=== PATIENT | male | born 2000 | race Asian ===

== ENCOUNTER 2024-09-27 17:05 | Emergency (ER) | payer SELFPAY ==
[2024-09-27] VITALS (8 sets, daily range): BP systolic 108–125; BP diastolic 59–78; PULSE 61–88; RESP 13–18; TEMP 36.6–39.7; O2SAT 96–99; BMI 25.1
--- NOTE | ~2024-09-27 | US_ITS ---
CLINICAL HISTORY: GB, CBD, liver --- Additional Notes or Special Instructions: fever, pain, N,V US abdomen limited Comparison: None Findings: The visualized pancreas is normal. The aorta and inferior vena cava are normal caliber. The liver is normal in size and echotexture. There is no intrahepatic bile duct dilatation. The common duct is 3 mm in diameter. The gallbladder is normal. There is no sonographic Miramontes sign. The main portal vein is antegrade. The right kidney is 10.1 cm in length. No ascites. IMPRESSION: Unremarkable limited abdominal ultrasound. This document has been electronically signed by: Annia Walker MD on 09/27/2024 20:58:52
--- NOTE | ~2024-09-27 | XR_ITS ---
CLINICAL HISTORY: fever, feeling unwell 2 view chest x-ray Comparison: None Findings: No consolidation or effusion. Heart size is normal. No acute fracture. IMPRESSION: 1. No acute findings. This document has been electronically signed by: Annia Walker MD on 09/27/2024 19:05:05
--- NOTE | 2024-09-27 17:16 | ED.GENADULT ---
HPI - General Adult General Chief complaint: Fever Stated complaint: fever like symptoms Time Seen by Provider: 09/27/24 18:13 Source: patient Limitations: no limitations History of Present Illness ED Provider: Brianda Givens PA-C HPI narrative: 23-year-old male who is otherwise healthy presents with refractory fevers x4 days. Associated generalized malaise, myalgias, Pharyngitis,dry cough and nausea at times. patient was seen at urgent Care, was placed on penicillin, the patient is not sure why. T-max 104?. Denies abdominal pain, active vomiting or diarrhea. Denies dysuria. No rash. Related Data Allergies Allergy/AdvReac Type Severity Reaction Status Date / Time No Known Allergies Allergy Verified 09/27/24 17:18 Review of Systems Review of Systems: Yes all other systems are reviewed and are negative Constitutional: Constitutional: Reports fatigue, Reports fever(s) and Reports malaise ENT: Reports sore throat Cardiovascular: Cardiovascular: Denies chest pain and Denies dyspnea Respiratory: Respiratory: Denies chest congestion, Reports cough and Denies dyspnea Gastrointestinal: Gastrointestinal: Denies abdominal pain, Denies diarrhea, Reports nausea and Denies vomiting Genitourinary: Genitourinary: Denies dysuria Integumentary/Breasts: Skin/Breast: Denies rash Endocrine: Endocrine: Reports fatigue PMFSH Past Medical History Attestation statement: The following information was validated with the patient. Social History Social History Smoked in Last 30 Days: No Use of substances other than those prescribed or required for medical reasons: No Advance Directives: No Advance Directives Information Provided: No Do you have a plan to hurt others: No Plan Physical Exam ED Vital Signs: Vital Signs - 24 hr 09/27/24 17:17 09/27/24 18:40 09/27/24 20:06 Temperature 99.5 F 103.4 F H 99.9 F Pulse Rate 88 88 79 Respiratory Rate 18 18 13 Blood Pressure 125/78 122/68 112/63 Pulse Oximetry 99 99 96 Oxygen Delivery Method Room Air Room Air Room Air 09/27/24 21:14 09/27/24 21:40 09/27/24 21:44 Temperature 98.4 F 98.6 F Pulse Rate 69 Respiratory Rate 18 Blood Pressure 108/62 112/59 L Pulse Oximetry 97 Oxygen Delivery Method Room Air BMI result Body Mass Index 25.1 Const Other: Alert well-appearing Orientation/consciousness: patient oriented x3 HENMT Other: tonsils are erythematous and edematous, with overlying exudate, right greater than left, uvula midline, no trismus no drooling no swelling inferior to the jawline Neck Neck: Yes full ROM and Yes no meningeal signs Resp Effort & Inspection: normal respiratory effort Cardio Other: normal peripheral perfusion GI Other: abdomen is soft, nontender nondistended no guarding Skin Other: warm dry no rash Neuro General: patient oriented x3, gait normal, no meningeal signs, no focal motor deficits and CN's II-XI intact bilaterally Psych Other: cooperative Course Course Course Narrative: RME performed by Mary Li PA-C. Patient is a 23 year old assigned male at presenting to the emergency department with a fever. Patient states that he has had 4 days of a fever. Patient states that he was at the urgent care on 09/26/2024 and was prescribed penicillin for a possible infection but had negative testing. Patient states that he is nauseous but has not vomited. Detailed physical exam and review of systems are deferred to the elevator dispatcher. Labs, imaging, and swabs ordered. Patient placed back in the waiting room pending room availability and results. Reevaluation(s) Reevaluation #1: this is a sepsis focused exam at 6:57 p.m. on September 27. The patient just spiked a temperature of 103.4, Adding on blood cultures and lactic starting ceftriaxone giving weight based IV fluid and Tylenol Time: 18:57 Reevaluation #2: patient developed urticaria, we believe it is from the ceftriaxone, he had an had Tylenol, when it was administered he has vomited, he then was receiving IV Tylenol after the urticaria. Both were discontinued, he was given Solu-Medrol and Benadryl no airway compromise no angioedema Time: 20:07 Reevaluation #3: urticaria resolved, there was no progression of the reaction, ultrasound negative. I discussed with the patient he should not take the antibiotics he was given at urgent Care, this is likely viral. We will send with home care instructions. Time: 22:54 Medications Administered Discontinued Medications Generic Name Dose Route Start Last Admin Trade Name Freq PRN Reason Stop Dose Admin Acetaminophen 975 mg 09/27/24 18:57 09/27/24 19:30 Acetaminophen 325 Mg Tablet PO 09/27/24 18:58 975 mg ONCE ONE Administration Ceftriaxone Sodium 2 gm 09/27/24 18:57 09/27/24 19:30 Ceftriaxone Sodium 2 Gm Vial IVPUSH 09/27/24 18:58 2 gm ONCE ONE Administration Diphenhydramine HCl 50 mg 09/27/24 20:06 09/27/24 20:17 Diphenhydramine Hcl 50 Mg/Ml Vial IVPUSH 09/27/24 20:07 50 mg ONCE STA Administration Sodium Chloride 2,177.25 mls @ 2,177.25 mls/hr 09/27/24 18:57 09/27/24 21:38 Ns 30 ml/kg infuse over 1 hr (2177.25 ml) 09/27/24 19:56 Infused IV Infusion .Q1H STA Acetaminophen 1,000 mg in 100 mls @ 400 mls/hr 09/27/24 19:40 09/27/24 20:18 Ofirmev IV 09/27/24 19:54 Infused ONCE ONE Infusion Methylprednisolone Sodium Succinate 60 mg 09/27/24 20:06 09/27/24 20:17 Methylprednisolone Sod Succ 125 Mg Vial IVPUSH 09/27/24 20:07 60 mg ONCE ONE Administration Ondansetron HCl 4 mg 09/27/24 19:40 09/27/24 19:44 Ondansetron Hcl 4 Mg/2 Ml Vial IVPUSH 09/27/24 19:41 4 mg ONCE ONE Administration Medical Decision Making Medical Decision Making [facility] Narrative: 23-year-old male who is otherwise healthy presents with refractory fevers x4 days. Associated generalized malaise, myalgias, Pharyngitis,dry cough and nausea at times. patient was seen at urgent Care, was placed on penicillin, the patient is not sure why. T-max 104?. Denies abdominal pain, active vomiting or diarrhea. Denies dysuria. No rash. no chronic issues History: Per patient I have considered the following differential diagnoses: Fever of unknown origin, sepsis, UTI, viral syndrome, pneumonia, acute intra-abdominal pathology, cholecystitis Plan: Screening labs including viral panel, strep pharyngitis screen, mononucleosis, chest x-ray and urine Obtained from triage, everything is negative thus far. In chart review, the patient does have elevation of LFTs, he states he has been nauseous, perhaps he has underlying biliary pathology. We will obtain an ultrasound. The elevation in LFTs could also be related to underlying viral syndrome. I have independently reviewed the following tests: Labs: Leukocytosis, not anemic, no electrolyte abnormality, lactic acid 1.3, urine not infected, viral panel negative mono screen negative, strep pharyngitis negative Chest x-ray:Findings: No consolidation or effusion. Heart size is normal. No acute fracture. IMPRESSION: 1. No acute findings. ultrasound right upper quadrant:Findings: The visualized pancreas is normal. The aorta and inferior vena cava are normal caliber. The liver is normal in size and echotexture. There is no intrahepatic bile duct dilatation. The common duct is 3 mm in diameter. The gallbladder is normal. There is no sonographic Miramontes sign. The main portal vein is antegrade. The right kidney is 10.1 cm in length. No ascites. IMPRESSION: Unremarkable limited abdominal ultrasound. Lab Data 09/27/24 17:32 09/27/24 17:32 Labs: Lab Results 09/27/24 09/27/24 Range/Units 17:32 19:28 WBC 12.7 H (4.8-10.8) X10*3/uL RBC 4.64 (4.60-5.80) X10*6/uL Hgb 12.7 L (14.0-18.0) g/dl Hct 38.3 L (42.0-52.0) % MCV 82.5 (80.0-98.0) fL MCH 27.4 (27.0-33.0) pg MCHC 33.2 (31.0-36.0) g/dl RDW 12.4 (11.0-16.0) % Plt Count 199 (160-400) X10*3/uL MPV 10.2 (9.4-12.4) fL Immature Gran % (Auto) 0.2 (0.0-0.4) % Neut % (Auto) 67.8 (45-73) % Lymph % (Auto) 17.4 L (20-40) % Maries % (Auto) 14.4 H (2-11) % Eos % (Auto) 0.0 (0-4) % Baso % (Auto) 0.2 (0-2) % Lymph # (Auto) 2.2 (1.2-4.9) X10*3/uL Maries # (Auto) 1.8 H (0.1-1.2) X10*3/uL Eos # (Auto) 0.0 (0.0-0.4) X10*3/uL Baso # (Auto) 0.0 (0.0-0.2) X10*3/uL Abs Immat Gran (auto) 0.03 (0.00-0.03) X10*3/uL Absolute Neuts (auto) 8.6 H (2.0-8.3) x10*3/uL Absolute Nucleated RBC 0.000 (0.0-0.012) X10*3/uL Nucleated RBC % (auto) 0.0 (0.0-0.2) /100WBC Smear Tech's Comments VERIFIED Sodium 135 (135-145) mmol/L Potassium 3.9 (3.3-5.1) mmol/L Chloride 101 (96-108) mmol/L Carbon Dioxide 23 (22-29) mmol/L Anion Gap 15 (12-20) BUN 13 (9-16) mg/dL Creatinine 1.07 (0.5-1.4) mg/dL Estim Creat Clear Calc 98.6 Estimated GFR > 60 Random Glucose 89 (60-115) mg/dL Lactic Acid 1.3 (0.5-2.0) mmol/L Calcium 9.2 (8.4-10.2) mg/dL Magnesium 1.9 (1.6-2.6) mg/dL Total Bilirubin 1.3 H (0.0-1.0) mg/dL AST 70 H (5-37) U/L ALT 45 H (0-40) U/L Alkaline Phosphatase 52 (39-117) U/L Total Protein 8.4 H (6.5-8.0) g/dL Albumin 4.3 (3.5-5.0) g/dL Urine Color Yellow Urine Appearance Clear Urine pH 5.5 (5.0-9.0) Ur Specific Bartlett 1.020 (1.005-1.025) Urine Protein Trace (Neg-Trace) mg/dL Urine Glucose (UA) Negative (Negative) mg/dL Urine Ketones Trace (Negative) mg/dL Urine Blood Negative (Negative) Urine Nitrite Negative (Negative) Ur Leukocyte Esterase Negative (Negative) Monoscreen Negative (Negative) Influenza Type A (PCR) NEGATIVE (Negative) Influenza Type B (PCR) NEGATIVE (Negative) RSV RNA Qual (PCR) NEGATIVE (Negative) SARS-CoV-2 RNA (RT-PCR) NEGATIVE (Negative) S. pyogenes GrpA TSERING Negative (Negative) Discharge Plan Discharge Clinical Impression: Acute viral syndrome, Fever of unknown origin, Allergic reaction Patient Disposition: Home, Self-Care Instructions: Viral Syndrome (ED), Fever in Adults (ED), Antibiotic Medication Allergy (ED), General Allergic Reaction (ED) Additional Instructions: you were tested for influenza RSV and COVID, the viral panel was negative. You screened negative. for mononucleosis. You screened negative for strep Throat. The chest x-ray was negative for pneumonia. The ultrasound of your upper abdomen was normal as well. I do believe your refractory fevers are still secondary to underlying viral illness. See home care instructions. In regard to the antibiotics you were given from urgent Care, I would discontinue them, you do not have a bacterial source that has been identified thus far, taking antibiotics unnecessarily can lead to resistance. Alternate [id number] ibuprofen 600 mg taken every 6 hours with food, with [id number] Tylenol 1000 mg taken every 8 hours, for your fevers. it is suspicious that you developed an allergic reaction to the IV antibiotic we gave you. This is in the cephalosporin group. If the hives return, use [id number] Zyrtec. Return precautions for onset of new symptoms, worsening symptoms, inability to tolerate oral intake. Blood cultures were obtained today, if they become positive, you will be contacted by the facility to return to the emergency room for admission for IV antibiotic therapy. Stand Alone Forms: Work/School Release Print Language: Urdu
[2024-09-27 17:48] LABS: Basophils Percent Auto 0.2 % (0-2); Hematocrit 38.3 % (42.0-52.0); Hemoglobin 12.7 g/dl (14.0-18.0); Imm Gran Abs Auto 0.03 X10*3/uL (0.00-0.03); Imm Gran Pct Auto 0.2 % (0.0-0.4); Lymphocytes Absolute Auto 2.2 X10*3/uL (1.2-4.9); Lymphocytes Percent Auto 17.4 % (20-40); MANUAL DIFF FLAG SCAN; Mean Corpuscular HGB Conc 33.2 g/dl (31.0-36.0); Mean Corpuscular Hemoglobin 27.4 pg (27.0-33.0); Mean Corpuscular Volume 82.5 fL (80.0-98.0); Mean Platelet Volume 10.2 fL (9.4-12.4); Monocytes Absolute Auto 1.8 X10*3/uL (0.1-1.2); Monocytes Percent Auto 14.4 % (2-11); Neutrophils Absolute Auto 8.6 x10*3/uL (2.0-8.3); Neutrophils Percent Auto 67.8 % (45-73); Platelet Count 199 X10*3/uL (160-400); Red Blood Count 4.64 X10*6/uL (4.60-5.80); Red Cell Distribution Width 12.4 % (11.0-16.0); SCAN SMEAR FLAG 1; White Blood Count 12.7 X10*3/uL (4.8-10.8)
[2024-09-27 17:49] LABS: Appearance Urine Clear; Color Urine Yellow; Glucose Urine UA Negative (Negative); Leukocyte Esterase Urine Negative (Negative); Nitrite Urine Negative (Negative); PH 5.5 (5.0-9.0); Urine Blood Negative (Negative); Urine Ketones Trace mg/dL (Negative); Urine Protein Trace mg/dL (Neg-Trace)
[2024-09-27 17:56] LABS: IDNOW Serial# 6674DD1D; Strep A Nucleic Acid Negative (Negative)
[2024-09-27 17:59] LABS: Monotest Negative (Negative)
[2024-09-27 18:01] LABS: Alanine Aminotransferase 45 U/L (0-40); Albumin Level 4.3 g/dL (3.5-5.0); Alkaline Phosphatase 52 U/L (39-117); Anion Gap 15 (12-20); Aspartate Amino Transferase 70 U/L (5-37); Bilirubin Total 1.3 mg/dL (0.0-1.0); Blood Urea Nitrogen 13 mg/dL (9-16); Calcium 9.2 mg/dL (8.4-10.2); Carbon Dioxide 23 mmol/L (22-29); Chloride 101 mmol/L (96-108); Creatinine Clr Calc Pharmacy 98.6; Estimated Glomerular Filt Rate > 60; Glucose Random 89 mg/dL (60-115); Magnesium 1.9 mg/dL (1.6-2.6); Potassium 3.9 mmol/L (3.3-5.1); Sodium 135 mmol/L (135-145); Total Protein 8.4 g/dL (6.5-8.0)
[2024-09-27 18:12] LABS: SLIDE REVIEW VERIFIED
[2024-09-27 18:25] LABS: Influenza A PCR NEGATIVE (Negative); Influenza B PCR NEGATIVE (Negative); Resp Syncy Virus RNA Qual PCR NEGATIVE (Negative); SARS COV2 PCR INHOUSE NEGATIVE (Negative)
--- NOTE | 2024-09-27 18:41 | PC.NURSE ---
Pt's temp 103.4 orally; pt c/o chills and throat soreness; tonsils swollen but airway patent; voice muffled and pt reports pain with swallowing; managing secretions; last Tylenol at 0800 this morning; IV access established; will tx per orders
--- NOTE | 2024-09-27 19:13 | MHC.EDTECH ---
assumed care of pt @1900
[2024-09-27] MEDS: Acetaminophen 325 MG TABLET 975 MG PO (19:30)
[2024-09-27] MEDS: 0.9 % Sodium Chloride 2,177.25 ML 2177.25 ML IV (19:30)
[2024-09-27] MEDS: cefTRIAXone sodium 2 GM VIAL IVPUSH (19:30)
[2024-09-27] MEDS: ondansetron HCL 4 MG/2 ML VIAL IVPUSH (19:44)
[2024-09-27] MEDS: Acetaminophen 1,000 MG/100 ML PIGGYBACK 400 MG IV (19:44)
--- NOTE | 2024-09-27 19:47 | PC.NURSE ---
IV abx delayed, pt was nauseous and throwing up when trying to obtain cultures/lactic
[2024-09-27 19:48] LABS: Lactic Acid 1.3 mmol/L (0.5-2.0)
[2024-09-27] MEDS: diphenhydrAMINE HCL 50 MG/ML VIAL IVPUSH (20:17)
--- NOTE | 2024-09-27 20:27 | PC.NURSE ---
pt reporting hives shortly after IV meds administered. provider at bedside, pt medicated per JUL.
== END 2024-09-27 23:15 | disposition home or self-care (01) ==
PROVIDERS: Physician Assistant Medical; Emergency Provider Emergency Medicine Emergency Medical Services
DX: B34.9 Viral infection, unspecified (principal); R50.9 Fever, unspecified; M79.10 Myalgia, unspecified site; L50.0 Allergic urticaria; R05.9 Cough, unspecified; R11.0 Nausea; Z03.818 Encounter for observation for suspected exposure to other biological agents ruled out; Z79.899 Other long term (current) drug therapy
CPT/HCPCS: 0241U; 36415; 71046; 76705; 80053; 81003; 83605; 83735; 85025; 86308; 87040; 87651; 96361; 96374; 96375; 99284; 99285; J0131; J0696; J1200; J2405; J2919

== ENCOUNTER → 2024-09-27 17:19 | Outpatient (BNV) | payer SELFPAY | PROVIDERS: Visit Provider Student in an Organized Health Care Education/Training Program | DX: R10.9 Unspecified abdominal pain (principal); R50.9 Fever, unspecified; R11.2 Nausea with vomiting, unspecified | CPT/HCPCS: 71046; 76705 ==